=== PATIENT | male | born 1980 | race Two or more races ===

== ENCOUNTER 2021-05-13 17:25 | Emergency (ER) | payer OTHER, SELFPAY ==
--- NOTE | ~2021-05-13 | CT_ITS ---
EXAMINATION: CT ABDOMEN AND PELVIS WITH CONTRAST CLINICAL INFORMATION: Left lower quadrant pain COMPARISON: None TECHNIQUE: Multidetector volumetric images were obtained from the superior aspect of the liver through the pubic symphysis following administration 85 mL of Omnipaque 350 intravenous contrast. Sagittal and coronal reformatted images were obtained on the technologist's workstation. Oral contrast: No This CT examination was performed using dose optimization techniques as appropriate, variously including the following: *Automated exposure control *Adjustment of mA and/or kV according to patient size (this includes techniques or standardized protocols for targeted exams where dose is matched to indication/reason for exam; i.e. extremities or head) *Use of iterative reconstruction technique DLP: 511 mGy-cm FINDINGS: LUNG BASES: Groundglass nodule at the right lung base. 3 mm LIVER, GALLBLADDER, AND BILIARY TREE: The liver is normal in size, shape, and attenuation. No focal hepatic lesion or biliary ductal dilatation is present. The gallbladder is unremarkable with no evidence of radiopaque gallstones, gallbladder wall thickening, or obvious pericholecystic inflammatory changes. PANCREAS: Unremarkable. SPLEEN: Unremarkable. ADRENAL GLANDS: Unremarkable. KIDNEYS AND URETERS: The kidneys are normal in size, shape, and attenuation. No hydronephrosis, hydroureter, or calculi seen. No perinephric stranding. BLADDER: Unremarkable. GASTROINTESTINAL TRACT: The small and large bowel are unremarkable. The appendix is unremarkable. ABDOMINAL WALL: No significant hernia is appreciated. LYMPH NODES: Normal. VASCULAR: Unremarkable. PELVIC VISCERA: Unremarkable. OSSEOUS STRUCTURES: Sclerotic bony lesion at D12 may represent CT/CT abdomen pelvis w con IMPRESSION: No acute finding. The bowel pattern is nonobstructing. There is no free fluid.
[2021-05-13 17:39] VITALS: BP 136/81; PULSE 60; RESP 16; TEMP 36.5; O2SAT 99; BMI 29.0
[2021-05-13 17:50] LABS: MANUAL DIFF FLAG NO
[2021-05-13 17:58] LABS: Basophils Percent Auto 0.4 % (0-2); Eosinophils Absolute Auto 0.1 X10*3/uL (0.0-0.4); Eosinophils Percent Auto 1.3 % (0-4); Hematocrit 44.1 % (42-52); Hemoglobin 15.2 g/dl (14.0-18.0); Imm Gran Abs Auto 0.02 X10*3/uL (0.00-0.03); Imm Gran Pct Auto 0.3 % (0.0-0.4); Lymphocytes Absolute Auto 2.2 X10*3/uL (1.2-4.9); Lymphocytes Percent Auto 29.5 % (20-40); Mean Corpuscular HGB Conc 34.5 g/dl (31.0-36.0); Mean Corpuscular Hemoglobin 29.7 pg (27.0-33.0); Mean Corpuscular Volume 86.3 fL (80-98); Mean Platelet Volume 10.6 fL (9.4-12.4); Monocytes Absolute Auto 0.6 X10*3/uL (0.1-1.2); Neutrophils Absolute Auto 4.5 X10*3/uL (2.0-8.3); Neutrophils Percent Auto 60.5 % (45-73); Platelet Count 256 X10*3/uL (160-400); Red Blood Count 5.11 X10*6/uL (4.60-5.80); Red Cell Distribution Width 12.5 % (11.0-16.0); White Blood Count 7.5 X10*3/uL (4.8-10.8)
[2021-05-13 18:22] LABS: Alanine Aminotransferase 42 U/L (0-40); Albumin Level 4.8 g/dL (3.5-5.0); Alkaline Phosphatase 70 U/L (39-117); Anion Gap 11 (12-20); Aspartate Amino Transferase 22 U/L (5-37); Bilirubin Direct 0.2 mg/dL (0.0-0.5); Bilirubin Total 0.4 mg/dL (0.0-1.0); Blood Urea Nitrogen 13 mg/dL (9-16); Calcium 9.8 mg/dL (8.4-10.2); Carbon Dioxide 28 mmol/L (22-29); Chloride 103 mmol/L (96-108); Creatinine Clr Calc Pharmacy 87.9; Estimated Glomerular Filt Rate > 60; Glucose Random 105 mg/dL (60-115); Lipase 34 U/L (8-78); Potassium 4.4 mmol/L (3.3-5.1); Sodium 138 mmol/L (135-145); Total Protein 7.8 g/dL (6.5-8.0)
--- NOTE | 2021-05-13 20:53 | PC.NURSE ---
pt a&O, no sob or chest pain. pt complaining left abdominal pain. pt reports it started sunday with n/v/. Bowel movement was last Sunday. Pt reports he is unable to eat at this time.
[2021-05-13 21:14] VITALS: BP 140/71; PULSE 67; RESP 16; TEMP 36.9; O2SAT 98
--- NOTE | 2021-05-13 21:37 | ED_ITS ---
HPI - Abdominal Pain General Chief Complaint: Abdominal Pain Stated Complaint: Abdominal pain Time Seen by Provider: 05/13/21 20:44 Source: patient Mode of arrival: ambulatory Limitations: no limitations History of Present Illness HPI narrative: 40-year-old male no previous medical problems presents emergency department complaining of left lower quadrant pain. He states he has had nausea and vomiting for the past 5 days. He states he has not been able to eat anything during that time. Patient denies fevers or chills he denies diarrhea he states the pain is now much worse. Located left lower quadrant he denies having this problem in the past. MD elicited complaint: abdominal pain Related Data Previous Rx's Medication Instructions Recorded ondansetron 4 mg disintegrating 4 mg PO Q6H #14 tab 05/13/21 tablet Allergies Allergy/AdvReac Type Severity Reaction Status Date / Time No Known Allergies Allergy Unverified 04/29/20 18:45 Review of Systems Review of Systems Review of systems: General: Patient denies any fever chills recent illness or falls Musculoskeletal: Denies back pain or body aches or other injuries HEENT: denies headache, runny nose, ear pain Respiratory: denies shortness of breath, cough Cardiovascular: no chest pain or palpitations : denies dysuria, frequency Abdomen: nausea vomiting llq abdominal pain Extremities: no swelling, no pain Skin: no diaphoresis Yes all other systems are reviewed and are negative Physical Exam Vital Signs: Vital Signs: Last Vital Signs Temp 98.5 F 05/13/21 21:14 Pulse 67 05/13/21 21:14 Resp 16 05/13/21 21:14 BP 140/71 H 05/13/21 21:14 Pulse Ox 98 05/13/21 21:14 Body Mass Index 29.0 Neurological exam: CN II- XII tested. Patient is alert and oriented to person place and time. Patient has no dysphagia or dysarthia, denies good vision in all four vision nieto no nystagmus on exam, good strength to upper and lower extremities with normal reflexes to brachioradialis, wrist, patella and achilles. Negative romberg, good finger to nose and heel to allen. General: Well-appearing well-nourished in no signs of distress HEENT: Normocephalic atraumatic Neck: No signs of JVD, no masses no tenderness or lymphadenopathy Cardiovascular: Regular rate and rhythm Respiratory: Clear to auscultation bilaterally Abdomen: Soft left lower quadrant pain with rebound and guarding no masses Extremities: Normal pedal pulses no signs of edema Skin: Dry warm no rashes Back: No tenderness full ROM MDM - Abdominal Pain MDM Narrative Medical decision making narrative: Patient with remarkably normal vital signs as well as labs but very tender to left lower quadrant. I will get the patient over for a CT scan on the patient morphine Zofran and fluids. 2250 CT labs are all unremarkable will discharge patient home with PCP follow- up. Differential Diagnosis Differential diagnosis: Likely abdominal pain, diverticulitis, gastritis, pancreatitis and peptic ulcer disease Lab Data Result diagrams: 05/13/21 17:46 05/13/21 17:46 Labs: Lab Results 05/13/21 05/13/21 Range/Units 17:46 17:46 WBC 7.5 (4.8-10.8) X10*3/uL RBC 5.11 (4.60-5.80) X10*6/uL Hgb 15.2 (14.0-18.0) g/dl Hct 44.1 (42-52) % MCV 86.3 (80-98) fL MCH 29.7 (27.0-33.0) pg MCHC 34.5 (31.0-36.0) g/dl RDW 12.5 (11.0-16.0) % Plt Count 256 (160-400) X10*3/uL MPV 10.6 (9.4-12.4) fL Immature Gran % (Auto) 0.3 (0.0-0.4) % Neut % (Auto) 60.5 (45-73) % Lymph % (Auto) 29.5 (20-40) % [place] % (Auto) 8.0 (2-11) % Eos % (Auto) 1.3 (0-4) % Baso % (Auto) 0.4 (0-2) % Lymph # (Auto) 2.2 (1.2-4.9) X10*3/uL [place] # (Auto) 0.6 (0.1-1.2) X10*3/uL Eos # (Auto) 0.1 (0.0-0.4) X10*3/uL Baso # (Auto) 0.0 (0.0-0.2) X10*3/uL Abs Immat Gran (auto) 0.02 (0.00-0.03) X10*3/uL Absolute Neuts (auto) 4.5 (2.0-8.3) X10*3/uL Absolute Nucleated RBC 0.000 (0.0-0.012) X10*3/uL Nucleated RBC % (auto) 0.0 (0.0-0.2) /100WBC Sodium 138 (135-145) mmol/L Potassium 4.4 (3.3-5.1) mmol/L Chloride 103 (96-108) mmol/L Carbon Dioxide 28 (22-29) mmol/L Anion Gap 11 L (12-20) BUN 13 (9-16) mg/dL Creatinine 1.13 (0.5-1.4) mg/dL Estim Creat Clear Calc 87.9 Estimated GFR > 60 Random Glucose 105 (60-115) mg/dL Calcium 9.8 (8.4-10.2) mg/dL Total Bilirubin 0.4 (0.0-1.0) mg/dL Direct Bilirubin 0.2 (0.0-0.5) mg/dL AST 22 (5-37) U/L ALT 42 H (0-40) U/L Alkaline Phosphatase 70 (39-117) U/L Total Protein 7.8 (6.5-8.0) g/dL Albumin 4.8 (3.5-5.0) g/dL Lipase 34 (8-78) U/L Discharge Plan Discharge Clinical Impression: Abdominal pain, Vomiting Patient Disposition: Home, Self-Care Instructions: Acute Nausea and Vomiting (ED), Abdominal Pain (ED) Additional Instructions: Please take Zofran as needed for nausea. If you have worsening pain or any other concerns please do not hesitate to come back to emergency department. Prescriptions: New ondansetron 4 mg tablet,disintegrating 4 mg PO Q6H Qty: 14 RF: 0 PMFSH Past Medical History Medical History (Updated 05/13/21 @ 22:50 by Mynor Larson DO) No known health problems Social History Social History Advance Directives: No
[2021-05-13] MEDS: iohexoL 350 MG/ML 100 ML INFUS..BTL IV (22:05)
[2021-05-13] MEDS: ondansetron HCL 4 MG/2 ML VIAL IVPUSH (22:07)
[2021-05-13] MEDS: Famotidine/PF 20 MG/2 ML VIAL IVPUSH (22:08)
[2021-05-13] MEDS: Morphine Sulfate 4 MG/ML CARTRIDGE IVPUSH (22:10)
[2021-05-13] MEDS: 0.9 % Sodium Chloride 500 ML 999 ML IV (22:12)
[2021-05-13 23:10] VITALS: BP 108/67; PULSE 74; RESP 16; TEMP 36.7; O2SAT 99
== END 2021-05-13 23:23 | disposition home or self-care (01) ==
PROVIDERS: Emergency Provider Student in an Organized Health Care Education/Training Program; PCP Internal Medicine
DX: R10.32 Left lower quadrant pain (principal); R11.2 Nausea with vomiting, unspecified; Z79.899 Other long term (current) drug therapy
CPT/HCPCS: 36415; 74177; 80048; 80076; 83690; 85025; 96374; 96375; 99284; J2270; J2405; Q9967

== ENCOUNTER 2021-08-29 15:28 | Outpatient (REF) | payer OTHER, SELFPAY | END 2021-08-29 15:29 | disposition home or self-care (01) | LOC: HO.HMGCLDS 15:28 | PROVIDERS: PCP Student in an Organized Health Care Education/Training Program; Visit Provider Student in an Organized Health Care Education/Training Program | DX: Z13.89 Encounter for screening for other disorder (principal) ==

== ENCOUNTER 2022-01-16 14:53 | Outpatient (REF) | payer OTHER, SELFPAY ==
[2022-01-16 15:47] LABS: COVID-19 Test Negative (Negative); IDNOW Serial# 16C4AD1C
== END 2022-01-16 14:54 | disposition home or self-care (01) ==
LOC: HO.LAB 14:53
PROVIDERS: Visit Provider Internal Medicine
DX: Z20.822 Contact with and (suspected) exposure to COVID-19 (principal)
CPT/HCPCS: 87635; C9803

== ENCOUNTER 2022-12-21 14:06 | Emergency (ER) | payer OTHER, SELFPAY ==
--- NOTE | ~2022-12-21 | XR_ITS ---
EXAMINATION: XR ANKLE, LEFT CLINICAL INFORMATION: Ankle injury. COMPARISON: None available. TECHNIQUE: AP, lateral, and mortise views of the left ankle. FINDINGS: No acute fractures or subluxation. Mild diffuse soft tissue thickening, slightly more prominent adjacent to the lateral malleolus and in the heel of the left foot. No unexpected radiopaque foreign bodies. XR/XR ankle LT min 3V IMPRESSION: 1. No acute fractures or subluxation. 2. Nonspecific soft tissue thickening.
[2022-12-21 14:26] VITALS: BP 129/62; PULSE 71; RESP 19; TEMP 36.7; O2SAT 97; BMI 27.6
--- NOTE | 2022-12-21 15:21 | PC.NURSE ---
left ankle swelling and bruising noted
--- NOTE | 2022-12-21 15:28 | ED_ITS ---
HPI - General Adult General Chief complaint: Extremity Injury, Lower Stated complaint: L ankle work injury Time Seen by Provider: 12/21/22 15:15 Source: patient Mode of arrival: ambulatory Limitations: no limitations History of Present Illness HPI narrative: Patient is a 42-year-old male with history of GERD presenting to the ED with left lateral ankle pain after slipping off of 2 steps at work on Sunday. He has soaked his ankle in warm water with Epsom salt as well as applied Vicks and used an Uriel wrap but is having continued pain. He has not used any Tylenol or ibuprofen. He denies any numbness or tingling to his foot or toes. He has been ambulating with a limp. Related Data Home Medications Medication Instructions Recorded Confirmed [id number] 2 tab PO Q4-6H PRN 08/29/21 5 mg-10 mg-325 mg-200 mg tablet (Tylenol Cold and Flu Severe) Previous Rx's Medication Instructions Recorded ondansetron 4 mg disintegrating 4 mg PO Q6H #14 tabs 08/10/21 tablet Allergies Allergy/AdvReac Type Severity Reaction Status Date / Time No Known Allergies Allergy Verified 08/29/21 14:44 Review of Systems Review of Systems: As per HPI Yes all other systems are reviewed and are negative Constitutional: Constitutional: Reports as per HPI [facility] Past Medical History Medical History No known health problems Social History Social History (Updated 08/10/21 @ 10:01 by Isaiah Panda PA-C) Housing: House Alcohol intake: never Patient Tobacco Use Status: Never used Tobacco Smoked in Last 30 Days: No e-Cigarette/Vaping Use: Never Used Second Hand Smoke Exposure: No Advance Directives: No Advance Directives Information Provided: No Current occupational status: employed Current occupation: [employer]- [employer] Physical Exam ED Vital Signs: Vital Signs - 24 hr 12/21/22 14:26 Temperature 98.1 F Pulse Rate 71 Respiratory Rate 19 Blood Pressure 129/62 Pulse Oximetry 97 Oxygen Delivery Method Room Air BMI result Body Mass Index 27.6 Const General: cooperative, healthy appearing and no acute distress Orientation/consciousness: oriented to person, oriented to place, oriented to time and patient oriented x3 Limitations: no limitations HENMT Head: Yes normocephalic and Yes atraumatic Ears: external ears normal General nose exam: Normal external nose present Face and sinus: Yes face symmetric Mouth: oropharynx normal and moist mucous membranes Throat: Yes uvula midline Eyes Pupils: Equal, round and reactive pupils present Neck Neck: Yes normal visual inspection and Yes supple Resp Effort & Inspection: normal respiratory effort and able to speak in complete sentences Auscultation: clear to auscultation bilaterally Cardio Rate: regular rate Rhythm: regular rhythm Heart sounds: S1 normal heart sound present and S2 normal heart sound present GI Palpation (GI): Soft to palpation and nontender Auscultation: normoactive bowel sounds General: Yes no CVA tenderness Back/Spine/Pelvis Back: no CVA tenderness Skin General skin exam: elasticity normal and turgor normal Neuro General: oriented to person, oriented to place, oriented to time, patient oriented x3, moves all extremities, no focal motor deficits and CN's II-XI intact bilaterally Cranial nerves: Yes Equal, round and reactive pupils present Cognition (Neuro): normal cognition Extrem General: Yes full ROM and Yes no calf tenderness Left lower extremity: ankle (negative Beal test) Details: tenderness Location: of the lateral malleolus, swelling Details: laterally, normal ROM and ecchymosis lateral ; no warmth, no crepitus and achilles tendon exam normal and foot Details: normal capillary refill, normal to inspection and toes with normal ROM; no tenderness Psych Mental Status: mental status grossly normal Affect: normal affect Thought process: Normal thought process present Medical Decision Making Medical Decision Making MDM Narrative: Patient is a 42-year-old male with history of GERD presenting to the ED with left lateral ankle pain after slipping off of 2 steps at work on Sunday. On exam patient is A+Ox3, nontoxic appearing, VS WNL, mild edema and ecchymosis to left lateral ankle with tenderness to palpation of lateral malleolus, 2+ PT and DP pulses, full ROM to ankle and toes. Concern for strain, sprain, fracture. Less likely achilles tendon rupture as achilles nontender and Beal negative. X-ray negative for acute fracture. Results discussed with patient and advised him that symptoms are likely related to minor sprain. Advised Tylenol/ibuprofen, rest, elevation, ice. Follow up with ortho if symptoms not improving after 1-2 weeks. Return precautions discussed at bedside. Differential Diagnosis Differential Diagnoses: The differential diagnosis associated with the presentation includes As above Independent Interpretation I performed an independent interpretation of an: Plain X-Ray Interpretation: I independently reviewed the x-ray and agree with the radiologist's interpretation. Radiology Impression Discussion of test interpretation with radiology: I have reviewed the radiologist's reading. Radiologist Impression: FINDINGS: No acute fractures or subluxation. Mild diffuse soft tissue thickening, slightly more prominent adjacent to the lateral malleolus and in the heel of the left foot. No unexpected radiopaque foreign bodies.? XR/XR ankle LT min 3V IMPRESSION: 1.? No acute fractures or subluxation. 2.? Nonspecific soft tissue thickening. External Record Review External record reviewed: Inpatient record, Office record and Outpatient record Discharge Plan Discharge Clinical Impression: Left ankle sprain Patient Disposition: Home, Self-Care Instructions: Ankle Sprain (DC) Additional Instructions: You were evaluated in the emergency department today for ankle pain. Your evaluation showed no fracture of your ankle. Your symptoms are likely related to a minor sprain. We have placed your ankle in an air splint today, you can wear this while walking and progress with activities as tolerated. Please rest, ice, and elevate your ankle. You can use Tylenol or ibuprofen per package directions every 6 hours as needed for pain. If necessary, you can alternate these medications so that you take 1 medication every 3 hours. For instance, at noon take ibuprofen, then at 3:00 p.m. take Tylenol, then at 6:00 p.m. take ibuprofen. Please follow-up with the orthopedic surgeon if your symptoms have not improved in 1-2 weeks. Return to the emergency department if you experience worsening pain, numbness, tingling, change of color in your toes, or any other concerning symptoms. Prescriptions: No Action ondansetron 4 mg tablet,disintegrating 4 mg PO Q6H Qty: 14 0RF Tylenol Cold and Flu Severe [id number] mg tablet 2 tab PO Q4-6H PRN Referrals: [facility] [place] [facility] [Provider Group] Stand Alone Forms: Work/School Release
== END 2022-12-21 17:03 | disposition home or self-care (01) ==
PROVIDERS: Emergency Provider Student in an Organized Health Care Education/Training Program; PCP Internal Medicine
DX: S93.402A Sprain of unspecified ligament of left ankle, initial encounter (principal); S93.492A Sprain of other ligament of left ankle, initial encounter; X58.XXXA Exposure to other specified factors, initial encounter; Y93.9 Activity, unspecified; Y92.9 Unspecified place or not applicable; Y99.0 Civilian activity done for income or pay
CPT/HCPCS: 73610; 99283

== ENCOUNTER → 2023-01-12 09:52 | Outpatient (BNVA) | payer OTHER, SELFPAY | PROVIDERS: PCP Internal Medicine; Visit Provider Physician Assistant | DX: S93.409D Sprain of unspecified ligament of unspecified ankle, subsequent encounter (principal) | CPT/HCPCS: 99202 ==

== ENCOUNTER 2024-04-02 13:33 | Outpatient (REF) | payer OTHER, SELFPAY ==
[2024-04-03 08:18] LABS: HBS Num1 16.99 mIU/mL (0-7.99); HBc Num1 0.06 S/CO (0.00-0.79); HBsAGNum1 0.32 S/CO (0.00-0.99); Hepatitis B Core Antibody Nonreactive (Nonreactive); Hepatitis B Surface Antigen Negative (Negative); ~Hepatitis B Surface Antibody REACTIVE (Nonreactive)
== END 2024-04-02 13:34 | disposition home or self-care (01) ==
LOC: HO.LAB 13:33
PROVIDERS: PCP Internal Medicine; Visit Provider Internal Medicine
DX: Z23 Encounter for immunization (principal)
CPT/HCPCS: 36415; 86704; 86706; 86787; 87340